=== PATIENT | male | born 1970 | race Two or more races ===

== ENCOUNTER 2024-03-30 19:33 | Emergency (ER) | payer OTHER ==
[~2024-03-30] VITALS: Ht 177.8 cm; Wt 70.3 kg
[2024-03-30] MEDS ORDERED: LIDOCAINE HCL 1% 10ML VIAL PERCUT ONE (20:45)
[2024-03-30] MEDS ORDERED: KETOROLAC TROMETHAMINE 60 MG VIAL IM ONE ×2 (20:45→21:22)
[2024-03-30] MEDS ORDERED: CEFTRIAXONE SODIUM 1,000 MG VIAL IM ONE (20:45)
[2024-03-30] MEDS ORDERED: LIDOCAINE HCL 1% 10ML VIAL ONE (21:22)
[2024-03-30] MEDS ORDERED: CEFTRIAXONE SODIUM 1,000 MG VIAL ONE (21:22)
[2024-03-30] MEDS ORDERED: PEPCID AC20 MG PO (21:52)
[2024-03-30] MEDS ORDERED: CEPHALEXIN750 MG PO (21:52)
== END 2024-03-30 22:02 | disposition home or self-care (01) ==
LOC: ER 19:36
DX: S01.112A Laceration without foreign body of left eyelid and periocular area, initial encounter (principal); W18.39XA Other fall on same level, initial encounter; Y93.89 Activity, other specified; Y92.89 Other specified places as the place of occurrence of the external cause; Y99.9 Unspecified external cause status

== ENCOUNTER 2024-04-10 11:22 | Emergency (ER) | payer OTHER ==
[~2024-04-10] VITALS: Ht 177.8 cm; Wt 70.3 kg
[~2024-04-10 11:22] MED LIST: CEPHALEXIN750 MG PO; PEPCID AC20 MG PO
== END 2024-04-10 14:18 | disposition home or self-care (01) ==
LOC: ER 11:25
DX: Z48.02 Encounter for removal of sutures (principal)